=== PATIENT | male | born 1955 | race Hispanic/Latino ===

== ENCOUNTER 2020-03-27 08:18 | Day surgery (SDC) | payer OTHER, SELFPAY ==
--- NOTE | 2020-03-27 | PATH_ITS ---
[facility] Accession Number: [id number] . 01 Material submitted: . PART A: colon - COLON POLYP X4 AT HEPATIC FLEXURE PART B: colon - COLON POLYP AT 80CM X3 PART C: colon - COLON POLYP AT 40CM PART D: colon - COLON POLYP AT 10CM . 01 Clinical history: . SCREENING COLONOSCOPY . 02 Diagnosis: A. Colon, Hepatic Flexure, Polyp x4, Biopsies: Tubular adenoma in seven of nine fragments. . B. Colon, Polyp at 80 cm x3, Biopsy: Tubular adenoma in one of four fragments. Sessile serrated adenoma in one fragment. . C. Colon, Polyp at 40 cm, Biopsy: Benign lymphoid aggregate. . D. Colon, Polyp at 10 cm, Biopsy: Hyperplastic colonic mucosa with extravasated red blood cells and features suggestive of trauma/prolapse. Negative for dysplasia and malignancy. [facility] 03/31/2020 1150 Local . 02 Electronically signed: . Janina Hill MD, Pathologist NPI- [id number] . 01 Gross description: . Part A: COLON POLYP X4 AT HEPATIC FLEXURE: Received in formalin are multiple fragment(s) of cruz, soft tissue measuring 1.0 x 0.8 x 0.2 cm in aggregate submitted entirely in 1 cassette(s) Part B: COLON POLYP AT 80CM X3: Received in formalin are 4 fragment(s) of cruz, soft tissue measuring 0.3 x 0.2 x 0.2 cm to 0.2 x 0.2 x 0.2 cm submitted entirely in 1 cassette(s) Part C: COLON POLYP AT 40CM: Received in formalin are 2 fragment(s) of cruz, soft tissue measuring 0.5 x 0.2 x 0.1 cm to 0.2 x 0.1 x 0.1 cm submitted entirely in 1 cassette(s) Part D: COLON POLYP AT 10CM: Received in formalin is 1 fragment(s) of cruz, soft tissue measuring 0.2 x 0.2 x 0.2 cm submitted entirely in 1 cassette(s) /QBJ 03/28/2020 0430 Local . 02 Pathologist provided ICD-10: D12.3, D12.6 . 02 CPT . 237703, 080526, 129923, 736300 Performed at: 01 [facility] [address] [id number] MD Alejandro Woodard MD Phone: [phone] Performed at: 02 [facility] [address] [place] [id number] MD Janina Hill MD Phone: [phone]
[2020-03-27 08:52] VITALS: BP 146/80; PULSE 76; RESP 20; TEMP 36.1; O2SAT 100; BMI 29.4
[2020-03-27] MEDS: LACTATED RINGERS 1,000 ML 200 ML IV (09:15)
[2020-03-27] MEDS: FLEETS ENEMA 1 EACH PR ×2 (09:20→09:35)
--- NOTE | 2020-03-27 09:55 | PM.HP.1 ---
History of Present Illness History of Present Illness Date Patient Seen: 03/27/20 Time Patient Seen: 09:55 Chief complaint: 28070 SCREENING COLONOSCOPY Narrative: The patient is a gentleman who has had numerous polyps removed during 3 colonoscopies in the past. His last exam was 2 years ago and 13 polyps were removed. He is here for a colonoscopy. No family history of colon cancer Patient History Medical History Diabetes type 2, controlled (Acute) Family & Social History Social History: household members spouse Tobacco & Substance use: Smoking Status Former smoker alcohol intake current alcohol intake frequency a few times a month Substance Use Type does not use Meds Home Medications and Allergies Home Medications Medication Instructions Recorded Confirmed Type atorvastatin 10 mg PO BEDTIME 03/27/20 03/27/20 History metformin 1,000 mg PO BID 03/27/20 03/27/20 History Allergies Allergy/AdvReac Type Severity Reaction Status Date / Time No Known Drug Allergies Allergy Verified 03/27/20 08:49 Review of Systems Review of Systems ROS: Yes All systems reviewed with the patient and are negative except as otherwise documented Exam Vital Signs (past 8 hours): - 03/27/20 08:52 Temperature 97 F L Pulse Rate 76 Respiratory Rate 20 Blood Pressure 146/80 H Pulse Oximetry 100 Oxygen Delivery Method Room Air Narrative Exam Narrative: No nodes in the neck or supraclavicular areas. Lungs are clear to auscultation no rales or rhonchi. Heart regular rate and rhythm no murmur gallop. No heave lift or thrill. Abdomen is protuberant soft nontender without mass. Patient is alert and oriented. Assessment & Plan Assessment & Plan narrative: Patient with a history of numerous polyps on prior colonoscopy use. He has a more frequently than usual due to the numerous number of polyps that have been removed. I have discussed the procedure and the rationale with the patient including risks of bleeding, perforation which would necessitate a major operation, failure to find remove all lesions and the potential to tattoo. They appeared to understand and wished to proceed.
--- NOTE | 2020-03-27 09:58 | PM.PREOP ---
Pre-operative Note COVID-19 COVID-19 status: Negative Result date/Date tested (Pos, Neg/Pending): 03/25/20 Interval Note History & Physical reviewed/Exam performed by Physician: Yes Changes to H&P: No ASA Class (for procedural sedation): II
[2020-03-27] MEDS: fentaNYL 250 MCG/5 ML INJ IV (10:27)
[2020-03-27] MEDS: MIDAZOLAM 5 MG/5 ML VIAL IV (10:27)
--- NOTE | 2020-03-27 10:58 | PM.OP.ENDO ---
Operative Date/Time/Diagnoses Date of procedure: 03/27/20 Time of procedure: 10:58 Pre-op diagnosis: History of numerous polyps(13) Post-op diagnosis: same (Nine small lesions removed. All may not be neoplastic. Pathology pending) Procedure & Clinicians Study performed: Colonoscopy with cold biopsy Same procedure as scheduled: Yes Indications: Patient with a history of numerous polyps brought in for a colonoscopy. Last exam was 2 years ago. Surgeon: Rojas Hearn Procedure Notes SCOAP/Timeout: Performed Procedure in detail: The patient was placed in the left lateral decubitus position and underwent IV sedation directed by the surgeon consisting of fentanyl and Versed. Digital exam was unremarkable. I could not feel is prostate well.. The scope was inserted and advanced through the rectum into the sigmoid, descending, transverse, and ascending colon. One small polyp was seen on the way in. I did a biopsy of it to make sure I could find it on the way out. We continued onward to the cecum.. The cecum was reached identified by the ileocecal valve and the appendiceal opening. The ileocecal valve was normal in appearance. The scope was gradually brought out. Numerous small Polyps were found at hepatic flexure(4), near 80 cm(3) 40 cm(1) and at 10 cm(1) from the anal verge. All were removed with cold biopsy forceps. All were under 5 mm in appearance. The scope ultimately was retroflexed in the rectum. The appearance was normal. No hemorrhoidal disease seen.. The scope was removed and the patient tolerated the procedure well. Scope withdrawal time: 15min(33 total) Sedation minutes: 49 Findings: polyp Specimen(s): other (Polyps) Complications: none Post-procedure Recommendations: Colonscopy in 3 years (Depending on the pathology of the polyps removed.) Follow up: as needed Disposition: PACU
[2020-03-27 11:00] VITALS: BP 138/82; PULSE 71; RESP 18; TEMP 36.6; O2SAT 97
[2020-03-27 11:05] VITALS: BP 138/85; PULSE 74; RESP 18; O2SAT 96
[2020-03-27 11:10] VITALS: BP 139/85; PULSE 64; RESP 14; TEMP 36.6; O2SAT 98
--- NOTE | 2020-03-27 11:18 | SUR.PHASEII ---
Pt stated is going to drop him off at [facility] and go to [place]. Pt was going to walk home after [facility] trip. Dr. Hearn made aware, spoke with pt. recommended pt not be alone. informed. New plan pt will go to [place] with . Report to Ashlie.
[2020-03-27 11:30] VITALS: BP 154/86; PULSE 71; RESP 20; TEMP 37; O2SAT 97
== END 2020-03-27 11:35 | disposition home or self-care (01) ==
PROVIDERS: PCP Family Medicine; Referring Provider Family Medicine; Visit Provider Specialist
PROC: 0DJD8ZZ Inspection of Lower Intestinal Tract, Via Natural or Artificial Opening Endoscopic (ICD-10-PCS; CPT 45378; principal; 2020-03-27 09:45)
DX: D12.3 Benign neoplasm of transverse colon (principal); D12.6 Benign neoplasm of colon, unspecified; Z12.11 Encounter for screening for malignant neoplasm of colon; Z86.010 Personal history of colon polyps; E11.9 Type 2 diabetes mellitus without complications; Z79.84 Long term (current) use of oral hypoglycemic drugs
CPT/HCPCS: 45380; 99152; 99153; J2250; J3010

== ENCOUNTER 2025-06-24 07:42 | Day surgery (SDC) | payer MEDICARE, OTHER, SELFPAY ==
[2025-06-24 08:44] VITALS: BP 142/80; PULSE 77; RESP 16; TEMP 36.2; O2SAT 97
--- NOTE | 2025-06-24 09:10 | PM.HP.IH.1 ---
History of Present Illness History of Present Illness Date Patient Seen: 06/24/25 Chief complaint: Screening Colonoscopy Narrative: History of colon polyps [facility] Medical History Diabetes type 2, controlled Social History household members: spouse Smoking Status: Never smoker alcohol intake: current Meds Home Medications and Allergies Home Medications ?Medication ?Instructions ?Recorded ?Confirmed ?Type atorvastatin 10 mg tablet 10 mg PO BEDTIME 03/27/20 06/24/25 History metformin 1,000 mg tablet,extended 1,000 mg PO BID 03/27/20 06/24/25 History release 24hr (osmotic) sodium,potassium,mag sulfates 17.5 See Rx Instructions PO .COMPLEX 05/27/25 Rx gram-3.13 gram-1.6 gram oral soln #354 mL (Suprep Bowel Prep Kit) insulin glargine 100 unit/mL (3 25 unit SUBCUT Q12H 06/24/25 06/24/25 History mL) subcutaneous pen (Lantus Solostar U-100 Insulin) insulin lispro 100 unit/mL SUBCUT 06/24/25 History subcutaneous pen lisinopril 40 mg tablet 40 mg PO DAILY 06/24/25 06/24/25 History tamsulosin 0.4 mg capsule 0.4 mg PO DAILY 06/24/25 06/24/25 History Allergies Allergy/AdvReac Type Severity Reaction Status Date / Time No Known Drug Allergies Allergy Verified 03/27/20 08:49 Exam Vital Signs (past 8 hours): - 06/24/25 08:44 Temperature 97.1 F L Pulse Rate 77 Respiratory Rate 16 Blood Pressure 142/80 H Pulse Oximetry 97 Oxygen Delivery Method Room Air Oxygen Delivery Method Room Air Narrative Exam Narrative: Oropharynx free of lesions Chest clear to auscultation percussion Cardiac exam reveals no S3 or murmur Objective Labs Labs: Laboratory Results - last 24 hr 06/24/25 08:42 POC Whole Bld Glucose 162 H Assessment & Plan Assessment & Plan narrative: History of adenomatous colon polyps need for follow-up colonoscopy. Risks, benefits, alternatives have been explained. Patient would like this done without anesthesia as he has had in the past. Time-Based Coding :: [TOTAL MINUTES] spent with patient and on the chart (including review of chart, obtaining history, exam, reviewing outside data, placing orders, documenting exam and treatment plan, and counseling patient) on [DATE]. [employer] Document charge(s): No
--- NOTE | 2025-06-24 09:11 | PM.OP.COLON ---
Operative Date/Time/Diagnoses Date of procedure: 06/24/25 Time of procedure: 09:50 Pre-op diagnosis: See indication and findings Post-op diagnosis: same Procedure & Clinicians Study performed: Colonoscopy Same procedure(s) as scheduled: Yes Indications: History of colon polyps Surgeon: Milena Dill Anesthesia Type: Other Procedure Notes Procedure in detail: After informed consent was obtained the patient was placed in left lateral decubitus position. The video colonoscope was introduced the rectum slowly advanced cecum. Preparation was good. On slow withdrawal mucosa was carefully examined. The scope was removed. The patient tolerated procedure well. Blood loss none Complications none Sedation none Findings 1. Normal colonoscopy to cecum Given the negative colonoscopy and its history of polyps follow-up should be 7 years for his next colonoscopy
[2025-06-24 09:45] VITALS: BP 147/77; PULSE 84; RESP 16; TEMP 36.7; O2SAT 96
== END 2025-06-24 09:58 | disposition home or self-care (01) ==
PROVIDERS: PCP Physician Assistant; Referring Provider Internal Medicine Gastroenterology; Visit Provider Internal Medicine Gastroenterology
PROC: 0DJD8ZZ Inspection of Lower Intestinal Tract, Via Natural or Artificial Opening Endoscopic (ICD-10-PCS; CPT 45378; principal; 2025-06-24 09:30)
DX: Z12.11 Encounter for screening for malignant neoplasm of colon (principal); Z86.0100 Personal history of colon polyps, unspecified
CPT/HCPCS: G0105; 82962; J2704